=== PATIENT | male | born 1965 | race Caucasian/White ===

== ENCOUNTER 2020-04-13 19:44 | Observation (INO) ==
[2020-04-13] MEDS ORDERED: Isovue-370 500 ML BOTTLE IVP ONE (20:02)
[2020-04-13] MEDS ORDERED: methylPREDNISolone 125 MG/2 ML VIAL IVP ONE (20:13)
[2020-04-13 20:23] LABS: Hematocrit 48.7 % (37.5-50.1); Hemoglobin 16.4 g/dL (12.9-16.9); Mean Corpuscular HGB Conc 33.7 g/dL (31.6-35.5); Mean Corpuscular Hemoglobin 30.8 pg (28.0-33.3); Mean Corpuscular Volume 91.4 fL (83.0-100.0); Mean Platelet Volume 9.6 fL (9.4-12.4); Platelet Count 303 K/mcL (140-400); Red Blood Count 5.33 M/mcL (4.19-5.50); Red Cell Distribution Width 13.2 % (11.5-14.5); White Blood Count 10.3 K/mcL (4.3-11.1)
[2020-04-13 20:34] LABS: Prothrombin Time 11.4 Seconds (9.4-12.1)
[2020-04-13 20:37] LABS: Activated Partial Thrombo Time 27.8 Seconds (26.0-36.0)
[2020-04-13 20:59] LABS: BUN/Creatinine Ratio 9 (6-26); Blood Urea Nitrogen 9 mg/dL (6-20); Calcium 9.5 mg/dL (8.6-10.3); Carbon Dioxide 23 mEq/L (23-29); Chloride 107 mEq/L (98-107); Glucose 79 mg/dL (70-105); Osmolality,Calculated 290 (280-300); Potassium 3.8 mEq/L (3.5-5.1); Sodium 141 mEq/L (136-145); Troponin I < 0.03 ng/mL (< 0.04); eGFR For African Americans > 60 (> 60); eGFR For Non-African Americans > 60 (> 60)
[2020-04-13] MEDS ORDERED: Aspirin 81 MG TAB.CHEW PO STA (22:20)
[2020-04-13] MEDS ORDERED: Ondansetron 4 MG/2 ML VIAL IVP PRN (23:06)
[2020-04-13] MEDS ORDERED: Acetaminophen 325 MG TABLET PO PRN (23:06)
[2020-04-13] MEDS ORDERED: Naloxone 0.4 MG/ML INJ IVP PRN (23:06)
[2020-04-14] MEDS ORDERED: Perflutren Lipid Microsphere 1.3 ML in 0.9 % Sodium Chloride 8.7 ML IVP PRN (02:40)
[2020-04-14 05:02] LABS: Prothrombin Time 11.4 Seconds (9.4-12.1)
[2020-04-14 05:25] LABS: Basophils % 0.3 %; Eosinophils % 0.2 %; Hematocrit 46.7 % (37.5-50.1); Hemoglobin 15.9 g/dL (12.9-16.9); Immature Granulocytes % 0.3 % (0-4); Lymphocytes # 0.5 K/mcL (0.6-4.6); Lymphocytes % 7.5 %; Mean Corpuscular Hemoglobin 31.2 pg (28.0-33.3); Mean Corpuscular Volume 91.6 fL (83.0-100.0); Mean Platelet Volume 9.8 fL (9.4-12.4); Monocytes % 0.6 %; Neutrophils # 5.7 K/mcL (1.6-8.9); Platelet Count 313 K/mcL (140-400); Segmented Neutrophils % 91.1 %; White Blood Count 6.3 K/mcL (4.3-11.1)
[2020-04-14 06:07] LABS: Alanine Aminotransferase 19 Units/L (7-52); Albumin 4.3 g/dL (3.5-5.7); Albumin/Globulin Ratio 1.5 (1.1-2.2); Alkaline Phosphatase 71 Units/L (34-104); Aspartate Amino Transferase 14 Units/L (13-39); BUN/Creatinine Ratio 10 (6-26); Bilirubin,Total 0.8 mg/dL (0.3-1.0); Blood Urea Nitrogen 10 mg/dL (6-20); Calcium 9.6 mg/dL (8.6-10.3); Carbon Dioxide 21 mEq/L (23-29); Chloride 108 mEq/L (98-107); Cholesterol 259 mg/dL (< 200); Globulin 2.9 g/dL (2.4-3.5); Glucose 160 mg/dL (70-105); HDL Cholesterol 37 mg/dL (40-59); LDL Cholesterol,Calculated 196 mg/dL (< 100); Magnesium 2.3 mg/dL (1.6-2.6); Osmolality,Calculated 288 (280-300); Phosphorous < 1.0 mg/dL (2.7-4.5); Potassium 3.8 mEq/L (3.5-5.1); Sodium 138 mEq/L (136-145); Total Protein 7.2 g/dL (6.4-8.9); Triglycerides 129 mg/dL (< 150); eGFR For African Americans > 60 (> 60); eGFR For Non-African Americans > 60 (> 60)
[2020-04-14 06:18] LABS: Folate 9.8 ng/mL (3.0-16.0)
[2020-04-14] MEDS ORDERED: *HR* Rivaroxaban 10 MG TABLET PO SCH (09:00)
[2020-04-14] MEDS: FLUoxetine 20 MG CAPSULE PO SCH (09:18)
[2020-04-14] MEDS: Aspirin Enteric Coated 81 MG Tablet PO SCH (09:18)
[2020-04-14] MEDS: Gabapentin 300 MG CAPSULE PO SCH (09:18)
[2020-04-14 11:40] LABS: Estimated Average Glucose 103 mg/dl; Hemoglobin A1C 5.2 %
[2020-04-14] MEDS: Acetaminophen 325 MG TABLET PO PRN (15:45)
[2020-04-14] MEDS: Apixaban 5 MG TABLET PO SCH (20:04)
[2020-04-15 03:08] LABS: BUN/Creatinine Ratio 15 (6-26); Blood Urea Nitrogen 15 mg/dL (6-20); Calcium 9.1 mg/dL (8.6-10.3); Carbon Dioxide 23 mEq/L (23-29); Chloride 109 mEq/L (98-107); Glucose 123 mg/dL (70-105); Osmolality,Calculated 294 (280-300); Phosphorous 2.6 mg/dL (2.7-4.5); Potassium 3.2 mEq/L (3.5-5.1); Sodium 141 mEq/L (136-145); eGFR For African Americans > 60 (> 60); eGFR For Non-African Americans > 60 (> 60)
[2020-04-15] MEDS: Acetaminophen 325 MG TABLET PO PRN ×2 (04:16→17:34)
[2020-04-15] MEDS: Apixaban 5 MG TABLET PO SCH ×2 (08:01→20:25)
[2020-04-15] MEDS: Aspirin Enteric Coated 81 MG Tablet PO SCH (08:01)
[2020-04-15] MEDS: lisinopriL 20 MG TABLET PO SCH (12:06)
[2020-04-15] MEDS: Gabapentin 300 MG CAPSULE PO SCH ×2 (16:35→20:25)
[2020-04-15] MEDS ORDERED: hydroCHLOROthiazide 25 MG TABLET PO ONE (18:00)
[2020-04-16] MEDS: Acetaminophen 325 MG TABLET PO PRN (04:41)
[2020-04-16 05:47] LABS: BUN/Creatinine Ratio 15 (6-26); Blood Urea Nitrogen 14 mg/dL (6-20); Calcium 9.3 mg/dL (8.6-10.3); Carbon Dioxide 24 mEq/L (23-29); Chloride 105 mEq/L (98-107); Glucose 97 mg/dL (70-105); Osmolality,Calculated 288 (280-300); Phosphorous 2.9 mg/dL (2.7-4.5); Potassium 3.4 mEq/L (3.5-5.1); Sodium 139 mEq/L (136-145); eGFR For African Americans > 60 (> 60); eGFR For Non-African Americans > 60 (> 60)
[2020-04-16 05:59] LABS: Triiodothyronine (T3) Free 3.33 pg/mL (2.50-3.90)
[2020-04-16] MEDS ORDERED: *HR* Labetalol 20 MG/4 ML SYRINGE IVP ONE (10:39)
[2020-04-16] MEDS: FLUoxetine 20 MG CAPSULE PO SCH (10:42)
[2020-04-16] MEDS: lisinopriL 20 MG TABLET PO SCH (10:42)
[2020-04-16] MEDS: Gabapentin 300 MG CAPSULE PO SCH (10:43)
[2020-04-16] MEDS: hydroCHLOROthiazide 25 MG TABLET PO SCH (10:43)
[2020-04-16] MEDS: Apixaban 5 MG TABLET PO SCH ×2 (10:43→20:46)
[2020-04-16] MEDS: Aspirin Enteric Coated 81 MG Tablet PO SCH (10:43)
[2020-04-16] MEDS ORDERED: *HR* Promethazine 25 MG/ML VIAL IM ONE (11:13)
[2020-04-16] MEDS ORDERED: Metoclopramide 10 MG/2 ML VIAL IVP ONE (12:16)
[2020-04-16] MEDS ORDERED: methylPREDNISolone 125 MG/2 ML VIAL IVP ONE (12:19)
[2020-04-16] MEDS: Acetaminophen/Butalbital/CaffeineTABLET PO PRN ×2 (13:31→20:54)
[2020-04-16] MEDS: *HR* Labetalol 20 MG/4 ML SYRINGE IVP PRN ×2 (13:33→17:50)
[2020-04-16] MEDS ORDERED: Gadolinium Contrast Agent (WT Based) IV PRN (14:57)
[2020-04-16 16:19] LABS: Basophils % 0.1 %; Hematocrit 49.1 % (37.5-50.1); Immature Granulocytes % 0.3 % (0-4); Lymphocytes # 0.4 K/mcL (0.6-4.6); Lymphocytes % 3.9 %; Mean Corpuscular HGB Conc 34.6 g/dL (31.6-35.5); Mean Corpuscular Hemoglobin 31.3 pg (28.0-33.3); Mean Corpuscular Volume 90.4 fL (83.0-100.0); Mean Platelet Volume 9.5 fL (9.4-12.4); Monocytes # 0.2 K/mcL (0.0-1.3); Monocytes % 1.9 %; Platelet Count 353 K/mcL (140-400); Red Blood Count 5.43 M/mcL (4.19-5.50); Red Cell Distribution Width 13.2 % (11.5-14.5); Segmented Neutrophils % 93.8 %
[2020-04-16 16:23] LABS: White Blood Count 10.7 K/mcL (4.3-11.1)
[2020-04-16] MEDS ORDERED: *HR* OxyCODONE/APAP 5/325 TABLET PO PRN (17:06)
[2020-04-16] MEDS ORDERED: lisinopriL 20 MG TABLET PO SCH (21:00)
[2020-04-16] MEDS ORDERED: Gabapentin 300 MG CAPSULE PO SCH (21:00)
[2020-04-17] MEDS ORDERED: lisinopriL 20 MG TABLET PO SCH (09:00)
[2020-04-17] MEDS: Aspirin Enteric Coated 81 MG Tablet PO SCH (09:02)
[2020-04-17] MEDS: Apixaban 5 MG TABLET PO SCH (09:02)
[2020-04-17] MEDS: hydroCHLOROthiazide 25 MG TABLET PO SCH (09:02)
[2020-04-17 10:07] LABS: Basophils % 0.1 %; Hemoglobin 16.1 g/dL (12.9-16.9); Immature Granulocytes % 0.6 % (0-4); Lymphocytes # 1.1 K/mcL (0.6-4.6); Lymphocytes % 6.1 %; Mean Corpuscular HGB Conc 34.3 g/dL (31.6-35.5); Mean Corpuscular Hemoglobin 30.7 pg (28.0-33.3); Mean Corpuscular Volume 89.5 fL (83.0-100.0); Mean Platelet Volume 9.7 fL (9.4-12.4); Monocytes # 1.3 K/mcL (0.0-1.3); Monocytes % 7.6 %; Neutrophils # 15.1 K/mcL (1.6-8.9); Platelet Count 449 K/mcL (140-400); Red Blood Count 5.25 M/mcL (4.19-5.50); Red Cell Distribution Width 13.2 % (11.5-14.5); Segmented Neutrophils % 85.6 %
[2020-04-17 10:34] LABS: White Blood Count 17.6 K/mcL (4.3-11.1)
[2020-04-17 10:37] LABS: BUN/Creatinine Ratio 18 (6-26); Blood Urea Nitrogen 18 mg/dL (6-20); Calcium 9.2 mg/dL (8.6-10.3); Carbon Dioxide 24 mEq/L (23-29); Chloride 103 mEq/L (98-107); Glucose 161 mg/dL (70-105); Osmolality,Calculated 291 (280-300); Sodium 138 mEq/L (136-145); eGFR For African Americans > 60 (> 60); eGFR For Non-African Americans > 60 (> 60)
[2020-04-17] MEDS ORDERED: hydroCHLOROthiazide 25 MG TABLET PO ONE (11:32)
[2020-04-17] MEDS ORDERED: *HR* Labetalol 20 MG/4 ML SYRINGE IVP ONE (16:11)
[2020-04-17 16:12] LABS: Basophils % 0.1 %; Eosinophils % 0.1 %; Hematocrit 48.7 % (37.5-50.1); Hemoglobin 16.7 g/dL (12.9-16.9); Immature Granulocytes % 0.6 % (0-4); Lymphocytes # 2.3 K/mcL (0.6-4.6); Lymphocytes % 12.6 %; Mean Corpuscular HGB Conc 34.3 g/dL (31.6-35.5); Mean Corpuscular Hemoglobin 30.7 pg (28.0-33.3); Mean Corpuscular Volume 89.5 fL (83.0-100.0); Mean Platelet Volume 9.4 fL (9.4-12.4); Monocytes # 2.4 K/mcL (0.0-1.3); Neutrophils # 13.6 K/mcL (1.6-8.9); Platelet Count 420 K/mcL (140-400); Red Blood Count 5.44 M/mcL (4.19-5.50); Red Cell Distribution Width 13.3 % (11.5-14.5); Segmented Neutrophils % 73.6 %; White Blood Count 18.5 K/mcL (4.3-11.1)
[2020-04-17 16:39] VITALS: BP 141/92
[2020-04-18] MEDS ORDERED: hydroCHLOROthiazide 25 MG TABLET PO SCH (09:00)
[2020-04-18] MEDS ORDERED: lisinopriL 20 MG TABLET PO SCH (09:00)
== END 2020-04-17 17:22 | disposition home or self-care (01) ==
LOC: 2NENU 19:44 → EMEROOARM 19:44 → SUATTDRO 22:58 → 2NENU 04-14 01:51
PROVIDERS: ADMIT Student in an Organized Health Care Education/Training Program; ATTEND Internal Medicine